=== PATIENT | female | born 1965 | race Caucasian/White ===

== ENCOUNTER → 2016-05-26 | Day surgery (SDC) | payer BC, OTHER ==
[~2016-05-26] MED LIST: BENA25TA8 PO; BUPIVACAINE HCL PF 0.75% 30 ML VIAL ONE; KETOROLAC TROMETHAMINE 30 MG/ML (IVP) VIAL IV PUSH ONE; LACTATED RINGER'S 1000 ML INJ 1,000 ML ONE; LIDOCAINE 1.5%/EPINEPHrine 1:200,000 PF SOLN 30 ML AMP ONE; LOSA50TA PO; MIDAZOLAM HCL 5 MG/ML VIAL (1 ML) ONE; MIREIUD IU; ONDANSETRON HCL 4 MG/2 ML VIAL IV PUSH ONE; PRED20 PO; PROPOFOL 100 MG/10 ML INJ IV ONE; RANI150 PO; SERT100 PO; ceFAZolin 2 GM PREMIX 50 ML ONE
--- NOTE | 2016-05-28 14:49 | MP ---
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 POSTOPERATIVE DIAGNOSIS: Right Achilles chronic tear with retrocalcaneal spur. OPERATION: Right Achilles tendon repair with tendon anchor and resection of posterior tibial spur. SPECIMEN: None. ESTIMATED BLOOD LOSS: Less then 30 ml's. MATERIALS USED: Right medical suture speed bridge. The patient had popliteal block. ANESTHESIA: General. POSITION: Prone. TOURNIQUET TIME: 74 minutes at 250 mmHg. PLAN OF ACTIVITY: PACU then DC home once stable per same-day surgery criteria. JUSTIFICATION FOR PROCEDURE: This is a 51-year-old female with longstanding history of chronic tearing insertional calcific Achilles tendonitis. She has exhausted immobilization physical therapy as well as stem cell injection, all without resolution of her symptoms. We devised a plan to move forward with a previously stated procedure. No guarantees were given or implied regarding the outcome. The patient has some risks regarding DVT, so we opted to start prophylaxis within 12 hours after surgery. Furthermore, the patient has a diabetic prolonged healing may take place being this may take 6-18 months to fully heal PROCEDURE IN DETAIL Malaise the patient is brought to operating room, placed on the operative table in the supine position following the induction of general anesthesia the patient was then placed prone, the right lower extremity was then scrubbed, prepped and draped in the usual aseptic fashion. The foot was elevated, exsanguinated previously placed mid thigh tourniquet inflated to 250 mmHg and incision was made that was curvilinear at the posterior lateral heel being careful to avoid the sternal distribution. Sharp and blunt dissection was carried down to the Achilles tendon which was then reflected noted to have prominent insertional calcific findings and retrocalcaneal spurring this was then transected utilizing power instrumentation the tendon was then debulked approximately 20% and then utilizing the topaz micro debridement. This was deployed within the distal portion of the Achilles. The retrocalcaneal bursa was identified and resected. Once verifying fluoroscopy. A smooth retrocalcaneal contour. An absent calcium, the Achilles was then repaired utilizing the speed bridge from [employer], this is a system utilizing fiber tape and Fiber[employer] to the proximal tendon anchors were then deployed the tendon was then repaired utilizing the fiber tape. The medial tail first, it was then split and the most distal portion was then inserted into just her ankle hole so there is a row, the distal anchor and proximal anchor this was thus secured the tendon. There is no gapping of the tendon. It was flush against the retrocalcaneal periosteum to serve as a excellent adhesions site. The wound was flushed copious amounts of normal saline and foot was then gently dorsiflexed there is noted to be no loss of attachment to the Achilles and intact tendon anchors. Deep dermis and fascia was closed utilizing Vicryl. Skin was closed utilizing nylon. Upon relieving the tourniquet there is a prompt hyperemic response to all digits without any delayed capillary fill time of note there is no need for gastrocnemius recession after the repair of the Achilles tendon was placed slightly more proximal on the retrocalcaneal surface, correcting for the equinus. The patient received a Kern compressive dressing and a posterior splint within the Kern compressive dressing a cool wrap was then placed to serve for ice function in the postoperative care unit. The patient is strict non-weightbearing start Lovenox within 12 hours. She will ice, elevate. I will see the patient within 3-5 days. NIKKI Ontiveros /3:16 PM /2:14 PM [place]
== END | disposition home or self-care (01) ==
LOC: ESDC 11:17
PROVIDERS: ATTEND Podiatrist Foot & Ankle Surgery
DX: S86.011A Strain of right Achilles tendon, initial encounter (principal); M77.31 Calcaneal spur, right foot
CPT/HCPCS: 01472; 01480; 27652; 28118; 64450; 73650; 76000; C1713; J0690; J1885; J2250; J2405; J3010; J7120

== ENCOUNTER 2016-06-20 18:31 | Emergency (ER) | payer BC, OTHER ==
[~2016-06-20] VITALS: Ht 175.3 cm; Wt 95.0 kg
[~2016-06-20 18:31] MED LIST changes: -BUPIVACAINE HCL PF 0.75% 30 ML VIAL ONE; -KETOROLAC TROMETHAMINE 30 MG/ML (IVP) VIAL IV PUSH ONE; -LACTATED RINGER'S 1000 ML INJ 1,000 ML ONE; -LIDOCAINE 1.5%/EPINEPHrine 1:200,000 PF SOLN 30 ML AMP ONE; -MIDAZOLAM HCL 5 MG/ML VIAL (1 ML) ONE; -ONDANSETRON HCL 4 MG/2 ML VIAL IV PUSH ONE; -PROPOFOL 100 MG/10 ML INJ IV ONE; -ceFAZolin 2 GM PREMIX 50 ML ONE
[2016-06-20 18:34] VITALS: BP 145/85; PULSE 90; RESP 16; TEMP 98; O2SAT 96
--- NOTE | 2016-06-20 19:50 | PD ---
Physical Exam Time Seen by Provider: 19:47 Narrative 51 y/o female presents for evaluation of h/a, nausea, vomiting, photophobia which began this AM. Sent by urgent care. Had a similar h/a once before and she was told that it was a migraine. Currently on lovenox s/p achilles tendon repair on 05/26/16. vss Seen at triage desk. Awaiting bed placement. Data Data Last Documented VS Vital Signs Date Time Temp Pulse Resp B/P Pulse Ox O2 Delivery O2 Flow Rate FiO2 06/20/16 18:34 98.0 90 16 145/85 96 Room Air [facility] Medical Record Reviewed: Yes Supervised Visit with RODRÍGUEZ: Hernando Conrad June 20, 2016 19:50
[2016-06-20] MEDS ORDERED: SODIUM CHLOR 0.9% 1000 ML INJ 1,000 ML IV ONE ×2 (22:17→22:30)
--- NOTE | 2016-06-20 22:29 | PD ---
HPI Chief Complaint: Headache Time Seen by Provider: 22:06 Travel History International Travel<30 days: No Contact w/Intl Traveler<30days: No Traveled to known affect area: No History of Present Illness HPI Patient is a 51 year old female who presents to ER with complaint of migraine headache. Patient reports that since this morning, she has had a frontal headache with photophobia and nausea and vomiting. Reports that she was seen at an urgent care earlier today and was told to come to the ER as she appeared dehydrated. Reports that she has not been able to eat or drink since this morning because of this headache. Patient denies fever/chills. Denies thunderclap headache. Reports that she has had similar headaches in the past. Patient also reports that she is on lovenox as she has history of achilles tendon repair on 05/26/16. PFSH Past Medical History Anxiety: Yes Depression: Yes Heart Rhythm Problems: No Cardiovascular Problems: Yes High Cholesterol: No Chest Pain: No Congestive Heart Failure: No Diminished Hearing: No Gastrointestinal Disorders: No Genitourinary: No Hypertension: Yes (no meds) Musculoskeletal: No Neurologic: No Reproductive: Yes (IUD in place) Respiratory: No Immunizations Current: No Myocardial Infarction: No ?: Not LMP: MENOPAUSAL : 0 Past Surgical History Other Surgery: Yes Social History Alcohol Use: Yes (socially) Tobacco Use: No (quit 2002, smoked cigs 1 pack a day for 15+ yrs) Substance Use: No Allergies-Medications (Allergen,Severity, Reaction): Coded Allergies: Penicillin (Verified Allergy, Severe, HIVES, 06/20/16) Sulfa (Verified Allergy, Intermediate, 06/20/16) Reported Meds & Prescriptions Reported Meds & Active Scripts Active Review of Systems General / Constitutional: No: Fever Eyes: Positive: Photophobia, No: Visual changes HENT: Positive: Headaches, Lightheadedness Cardiovascular: No: Chest Pain or Discomfort Respiratory: No: Shortness of Breath Gastrointestinal: No: Abdominal Pain Genitourinary: No: Dysuria Musculoskeletal: No: Pain Skin: No Rash Neurologic: No: Weakness Psychiatric: No: Depression Endocrine: No: Polydipsia Hematologic/Lymphatic: No: Easy Bruising Physical Exam Narrative GENERAL: mild distress SKIN: Focused skin assessment warm/dry. HEAD: Atraumatic. Normocephalic. EYES: Pupils equal and round. No scleral icterus. No injection or drainage. ENT: No nasal bleeding or discharge. Mucous membranes pink and moist. NECK: Trachea midline. No JVD. CARDIOVASCULAR: Regular rate and rhythm. No murmur appreciated. RESPIRATORY: No accessory muscle use. Clear to auscultation. Breath sounds equal bilaterally. GASTROINTESTINAL: Abdomen soft, non-tender, nondistended. Hepatic and splenic margins not palpable. MUSCULOSKELETAL: No obvious deformities. No clubbing. No cyanosis. No edema. patient with right ankle in case NEUROLOGICAL: Awake and alert. No obvious cranial nerve deficits. Normal speech. PSYCHIATRIC: Appropriate mood and affect; insight and judgment normal. Data Data Last Documented VS Vital Signs Date Time Temp Pulse Resp B/P Pulse Ox O2 Delivery O2 Flow Rate FiO2 06/20/16 18:34 98.0 90 16 145/85 96 Room Air Orders Complete Blood Count With Diff (06/20/16 22:17) Comprehensive Metabolic Panel (06/20/16 22:17) Ct Brain W/O Iv Contrast(Rout) (06/20/16 22:17) Ecg Monitoring (06/20/16 22:17) Iv Access Insert/Monitor (06/20/16 22:17) Oximetry (06/20/16 22:17) Sodium Chloride 0.9% Flush (Ns Flush) (06/20/16 22:30) Diphenhydramine Inj (Benadryl Inj) (06/20/16 22:30) Metoclopramide Inj (Reglan Inj) (06/20/16 22:30) Sodium Chlor 0.9% 1000 Ml Inj (Ns 1000 M (06/20/16 22:17) Ed Urine Pregnancytest Poc (06/20/16 22:17) Dexamethasone Inj (Decadron Inj) (06/20/16 22:30) Sodium Chlor 0.9% 1000 Ml Inj (Ns 1000 M (06/20/16 22:30) Ketorolac Inj (Toradol Inj) (06/20/16 23:30) Magnesium Sulfate 1 Gm Premix (Magnesium (06/20/16 23:30) Labs Laboratory Tests Test 06/20/16 22:00 White Blood Count 10.6 TH/MM3 Red Blood Count 4.98 MIL/MM3 Hemoglobin 14.6 GM/DL Hematocrit 42.1 % Mean Corpuscular Volume 84.7 FL Mean Corpuscular Hemoglobin 29.3 PG Mean Corpuscular Hemoglobin 34.6 % Concent Red Cell Distribution Width 13.0 % Platelet Count 234 TH/MM3 Mean Platelet Volume 8.7 FL Neutrophils (%) (Auto) 76.8 % Lymphocytes (%) (Auto) 18.5 % Monocytes (%) (Auto) 3.7 % Eosinophils (%) (Auto) 0.6 % Basophils (%) (Auto) 0.4 % Neutrophils # (Auto) 8.2 TH/MM3 Lymphocytes # (Auto) 2.0 TH/MM3 Monocytes # (Auto) 0.4 TH/MM3 Eosinophils # (Auto) 0.1 TH/MM3 Basophils # (Auto) 0.0 TH/MM3 CBC Comment DIFF FINAL Differential Comment Sodium Level 139 MEQ/L Potassium Level 3.6 MEQ/L Chloride Level 102 MEQ/L Carbon Dioxide Level 29.1 MEQ/L Anion Gap 8 MEQ/L Blood Urea Nitrogen 12 MG/DL Creatinine 0.73 MG/DL Estimat Glomerular Filtration 85 ML/MIN Rate Random Glucose 111 MG/DL Calcium Level 8.8 MG/DL Total Bilirubin 0.5 MG/DL Aspartate Amino Transf 22 U/L (AST/SGOT) Alanine Aminotransferase 38 U/L (ALT/SGPT) Alkaline Phosphatase 93 U/L Total Protein 7.2 GM/DL Albumin 3.7 GM/DL [facility] Medical Decision Making Medical Screen Exam Complete: Yes Emergency Medical Condition: Yes Interpretation(s) Vital Signs Date Time Temp Pulse Resp B/P Pulse Ox O2 Delivery O2 Flow Rate FiO2 06/20/16 18:34 98.0 90 16 145/85 96 Room Air Differential Diagnosis cephalgia, dehydration, intracranial hemorrhage, electrolyte abnormality Narrative Course Patient is a 51 year old female who presents to ER with complaint of headache. Reports that headache began this morning and has associated nausea and vomiting and photophobia. Patient reports that she has had similar migraines in the past. Overall, patient with normal neurologic exam. Patient recently started lovenox as she is S/P achilles tendon repair. Plan to obtain ct of head and lab work, will treat headache with migraine cocktail Vital Signs Date Time Temp Pulse Resp B/P Pulse Ox O2 Delivery O2 Flow Rate FiO2 06/20/16 18:34 98.0 90 16 145/85 96 Room Air Laboratory Tests Test 06/20/16 22:00 White Blood Count 10.6 TH/MM3 (4.0-11.0) Red Blood Count 4.98 MIL/MM3 (4.00-5.30) Hemoglobin 14.6 GM/DL (11.6-15.3) Hematocrit 42.1 % (35.0-46.0) Mean Corpuscular Volume 84.7 FL (80.0-100.0) Mean Corpuscular Hemoglobin 29.3 PG (27.0-34.0) Mean Corpuscular Hemoglobin 34.6 % Concent (32.0-36.0) Red Cell Distribution Width 13.0 % (11.6-17.2) Platelet Count 234 TH/MM3 (150-450) Mean Platelet Volume 8.7 FL (7.0-11.0) Neutrophils (%) (Auto) 76.8 % (16.0-70.0) Lymphocytes (%) (Auto) 18.5 % (9.0-44.0) Monocytes (%) (Auto) 3.7 % (0.0-8.0) Eosinophils (%) (Auto) 0.6 % (0.0-4.0) Basophils (%) (Auto) 0.4 % (0.0-2.0) Neutrophils # (Auto) 8.2 TH/MM3 (1.8-7.7) Lymphocytes # (Auto) 2.0 TH/MM3 (1.0-4.8) Monocytes # (Auto) 0.4 TH/MM3 (0-0.9) Eosinophils # (Auto) 0.1 TH/MM3 (0-0.4) Basophils # (Auto) 0.0 TH/MM3 (0-0.2) CBC Comment DIFF FINAL Differential Comment Sodium Level 139 MEQ/L (136-145) Potassium Level 3.6 MEQ/L (3.5-5.1) Chloride Level 102 MEQ/L (98-107) Carbon Dioxide Level 29.1 MEQ/L (21.0-32.0) Anion Gap 8 MEQ/L (5-15) Blood Urea Nitrogen 12 MG/DL (7-18) Creatinine 0.73 MG/DL (0.50-1.00) Estimat Glomerular Filtration 85 ML/MIN (>89) Rate Random Glucose 111 MG/DL (74-106) Calcium Level 8.8 MG/DL (8.5-10.1) Total Bilirubin 0.5 MG/DL (0.2-1.0) Aspartate Amino Transf 22 U/L (15-37) (AST/SGOT) Alanine Aminotransferase 38 U/L (10-53) (ALT/SGPT) Alkaline Phosphatase 93 U/L (45-117) Total Protein 7.2 GM/DL (6.4-8.2) Albumin 3.7 GM/DL (3.4-5.0) Last Impressions Head CT 06/20/16 8047 Signed Impressions: Service Date/Time: Monday, June 20, 2016 22:32 - CONCLUSION: Negative noncontrast head CT. Aj Kilgore MD Patient re-evaluated, patient feeling much better. Patient reports complete resolution of symptoms. Signs and symptoms of when to return to ER reviewed with patient. Patient will follow up with her primary care doctor and will return to ER as needed. Patient reevaluated, patient reports complete resolution symptoms. Patient appreciative of care. She will return to ER as needed Diagnosis Primary Impression: Cephalgia Qualified Code: R51 - Nonintractable headache, unspecified chronicity pattern , unspecified headache type Patient Instructions: General Instructions Additional Instructions: Please follow up with her primary care doctor in 2-3 days Return to emergency room as needed Returns to emergency room if symptoms return or persist Kathleen Linares DO June 20, 2016 22:28 Returns to emergency room if symptoms return or persist Kathleen Linares DO June 20, 2016 22:28
[2016-06-20] MEDS ORDERED: SODIUM CHLORIDE 0.9% FLUSH 10 ML FLUSH IVF PRN (22:30)
[2016-06-20] MEDS ORDERED: METOCLOPRAMIDE HCL 10 MG/2 ML VIAL IVP ONE (22:30)
[2016-06-20] MEDS ORDERED: diphenhydrAMINE HCL 50 MG/ML VIAL IVP ONE (22:30)
[2016-06-20] MEDS ORDERED: DEXAMETHASONE SOD PHOS 20 MG/5 ML VIAL IV PUSH ONE (22:30)
--- NOTE | 2016-06-20 22:39 | RADRPT ---
EXAM DATE/TIME: 06/20/2016 22:32 [place] COMPARISON: No previous studies available for comparison. INDICATIONS : Headaches with nausea and vomting. RADIATION DOSE: 37.07 CTDIvol (mGy) MEDICAL HISTORY : Cardiovascular disease. Hypertension. SURGICAL HISTORY : None. ENCOUNTER: Initial ACUITY: 1 day PAIN SCALE: 10/10 LOCATION: cranial TECHNIQUE: Multiple contiguous axial images were obtained of the head. Using automated exposure control and adj ustment of the mA and/or kV according to patient size, radiation dose was kept as low as reasonably a chievable to obtain optimal diagnostic quality images. FINDINGS: CEREBRUM: The ventricles are normal for age. No evidence of midline shift, mass lesion, hemorrhage or acute in farction. No extra-axial fluid collections are seen. POSTERIOR FOSSA: The cerebellum and brainstem are intact. The 4th ventricle is midline. The cerebellopontine angle i s unremarkable. EXTRACRANIAL: The visualized portion of the orbits is intact. SKULL: The calvaria is intact. No evidence of skull fracture. CONCLUSION: Negative noncontrast head CT. Aj Kilgore MD on June 20, 2016 at 22:36 Board Certified Radiologist. This report was verified electronically.
[2016-06-20 22:50] LABS: AUTOMATED NEUTROPHIL # 8.2 TH/MM3 (1.8-7.7); BASOPHIL % 0.4 % (0.0-2.0); EOSINOPHIL # 0.1 TH/MM3 (0-0.4); EOSINOPHIL % 0.6 % (0.0-4.0); HEMATOCRIT 42.1 % (35.0-46.0); HEMO FLAGS DIFF FINAL; LYMPH % 18.5 % (9.0-44.0); MEAN CELL VOLUME 84.7 FL (80.0-100.0); MEAN CORPUSCULAR HEMOGLOBIN 29.3 PG (27.0-34.0); MEAN CORPUSCULAR HGB CONC 34.6 % (32.0-36.0); MONO % 3.7 % (0.0-8.0); NEUT % 76.8 % (16.0-70.0); PLATELET COUNT 234 TH/MM3 (150-450); RED BLOOD COUNT 4.98 MIL/MM3 (4.00-5.30); WHITE BLOOD COUNT 10.6 TH/MM3 (4.0-11.0)
[2016-06-20 23:13] LABS: ANION GAP 8 MEQ/L (5-15); AST (GOT) 22 U/L (15-37); BICARBONATE 29.1 MEQ/L (21.0-32.0); BLOOD UREA NITROGEN 12 MG/DL (7-18); CHLORIDE 102 MEQ/L (98-107); GLOMERULAR FILTRATION RATE 85 ML/MIN (>89); POTASSIUM 3.6 MEQ/L (3.5-5.1); SODIUM (NA) 139 MEQ/L (136-145)
[2016-06-20 23:16] LABS: ALKALINE PHOSPHATASE 93 U/L (45-117); ALT (GPT) 38 U/L (10-53); TOTAL BILIRUBIN ADULT 0.5 MG/DL (0.2-1.0)
[2016-06-20] MEDS ORDERED: KETOROLAC TROMETHAMINE 30 MG/ML (IVP) VIAL IV PUSH ONE (23:30)
[2016-06-20] MEDS ORDERED: MAGNESIUM SULFATE 1 GM PREMIX 100 ML IV ONE (23:30)
== END 2016-06-21 01:15 | disposition home or self-care (01) ==
LOC: NEPD 18:31
DX: R51 Headache (principal); R11.2 Nausea with vomiting, unspecified; I10 Essential (primary) hypertension; H53.149 Visual discomfort, unspecified
CPT/HCPCS: 70450; 80053; 85025; 96374; 96375; 99284; J1100; J1200; J1885; J2765; J3475; J7030